=== PATIENT | female | born 1955 | race Caucasian/White ===

== ENCOUNTER 2018-07-10 14:42 | Outpatient (REF) | payer MEDICARE, MEDICAID, SELFPAY ==
--- NOTE | 2018-07-10 11:30 | PAPFT_PTH ---
PATIENT: Charity Tracey LOC: [facility] U#:[id number] AGE/SX: 63/F ROOM: RE07/10/[address]: Denae Najera : 1955 BED: DIS: 07/10/2018 SPEC #: [id number] RECD: 07/11/18 13:14 STATUS: ROBIN PANCHAL #: [id number] BELL: 07/10/18 11:[address]: Denae Rivera [facility]PT[facility] Cytology RECD BY: Barbie Arroyo ENTERED: 07/11/18 13:14 SP TYPE: PAPFT SU DR: Melisa Calixto Tissues: 1 - CX/ENDOCX FOR PAP SMEARS Procedures: PAP THIN PREP/[facility] Screening HPV DNA PROBE Comments: [id number]
[2018-07-10 22:28] LABS: ALT 52 U/L (12-78); AST 28 U/L (15-37); Albumin 4.5 g/dL (3.4-5.0); Alkaline Phosphatase 94 U/L (46-116); Anion Gap 9.7 mmol/L (3-11); BUN 21 mg/dL (7-18); Bilirubin, Total 0.4 mg/dL (0.2-1.0); CO2 30.3 mmol/L (21.0-32.0); CREATININE 1.02 mg/dL (0.55-1.02); Calcium 9.5 mg/dL (8.5-10.1); Chloride 105 mmol/L (98-107); Cholesterol 142 mg/dL (50-200); Estimated GFR 54.91 (mL/min/1.73m2); Glucose 92 mg/dL (70-100); HDL Cholesterol 64 mg/dL (40-60); LDL CHOLESTEROL 64 mg/dL (<100); Potassium 4.2 mmol/L (3.5-5.1); Sodium 145 mmol/L (136-145); TSH 1.03 uIU/mL (0.358-3.74); Total Protein 8.3 g/dL (6.4-8.2); Triglyceride 47 mg/dL (30-150)
== END 2018-07-10 15:02 ==
LOC: NCHCN 14:42
PROVIDERS: PCP Nurse Practitioner Family; Visit Provider Nurse Practitioner Family
DX: E10.9 Type 1 diabetes mellitus without complications (principal); Z12.4 Encounter for screening for malignant neoplasm of cervix; Z11.51 Encounter for screening for human papillomavirus (HPV); I10 Essential (primary) hypertension
CPT/HCPCS: 80053; 80061; 83721; 88142; 84443; 87624

== ENCOUNTER 2019-01-10 11:22 | Outpatient (REF) | payer MEDICARE, MEDICAID, SELFPAY ==
[2019-01-10 21:27] LABS: Abs Immature Grans 0.01 k/cumm (0.0-0.09); Absolute Basophil Count 0.02 k/cumm (0.0-0.2); Absolute Eosinophil Count 0.17 k/cumm (0.0-0.7); Absolute Lymphocyte Count 1.35 k/cumm (1.2-3.4); Absolute Monocyte Count 0.56 k/cumm (0.11-0.7); Absolute Neutrophil Count 6.43 k/cumm (1.2-6.7); Basophils % 0.2; HCT 35.1 % (36.0-46.0); HGB 11.7 g/dL (12.0-15.5); Immature Grans % 0.1; Lymphocytes % 15.8; Mean Corp. HGB Concentration 33.3 g/dL (32.0-36.0); Mean Corpuscular Hemoglobin 31.2 pg (27.0-33.0); Mean Corpuscular Volume 93.6 fL (80-95); Mean Platelet Volume 10.9 fL (8.0-11.0); Monocytes % 6.6; Neutrophils % 75.3; Platelet Count 255 x1000/uL (130-400); RBC 3.75 m/cumm (4.00-5.20); RBC Distribution Width 13.4 % (11.7-14.6); White Blood Cell Count 8.54 k/cumm (4.4-10.8)
[2019-01-10 22:37] LABS: ALT 50 U/L (12-78); AST 27 U/L (15-37); Albumin 4.5 g/dL (3.4-5.0); Alkaline Phosphatase 97 U/L (46-116); Anion Gap 12.2 mmol/L (3-11); BUN 19 mg/dL (7-18); Bilirubin, Total 0.3 mg/dL (0.2-1.0); CO2 25.8 mmol/L (21.0-32.0); CREATININE 1.05 mg/dL (0.55-1.02); Chloride 103 mmol/L (98-107); Glucose 159 mg/dL (70-100); Potassium 4.4 mmol/L (3.5-5.1); Sodium 141 mmol/L (136-145); TSH (W/Ref FT4) 1.17 uIU/mL (0.36-3.74); Total Protein 7.9 g/dL (6.4-8.2)
[2019-01-10 23:00] LABS: COMMENT (LAB VIEW ONLY) 73.65 mg/dL; Microalb ug/mg Crea 88.5 ug/mg Cr
[2019-01-14 11:32] LABS: Lyme Ab w Rflx to Lyme Confirm Negative
[2019-01-14 20:44] LABS: Anaplasma phagocytophilum Negative (Negative); B. miyamotoi PCR Negative (Negative); Babesia divergens/MO-1 Negative (Negative); Babesia duncani Negative (Negative); Babesia microti Negative (Negative); Ehrlichia chaffeensis Negative (Negative); Ehrlichia ewingii/canis Negative (Negative); Ehrlichia muris eauclairensis Negative (Negative)
== END 2019-01-10 11:42 ==
LOC: NCHCN 11:22
PROVIDERS: PCP Nurse Practitioner Family; Visit Provider Nurse Practitioner Family
DX: E10.9 Type 1 diabetes mellitus without complications (principal); R53.81 Other malaise; F41.8 Other specified anxiety disorders; G89.4 Chronic pain syndrome
CPT/HCPCS: 80053; 87798; 82043; 82570; 84443; 85025; 86618

== ENCOUNTER 2020-02-20 13:47 | Outpatient (REF) | payer MEDICARE, MEDICAID, SELFPAY ==
[2020-02-20 21:04] LABS: Anion Gap 7.4 mmol/L (3-11); BUN 30 mg/dL (7-18); CO2 28.6 mmol/L (21.0-32.0); CREATININE 1.17 mg/dL (0.55-1.02); Calcium 8.6 mg/dL (8.5-10.1); Chloride 107 mmol/L (98-107); Estimated GFR 46.57 (mL/min/1.73m2); Glucose 75 mg/dL (74-106); Potassium 4.7 mmol/L (3.5-5.1); Sodium 143 mmol/L (136-145)
[2020-02-20 21:08] LABS: COMMENT (LAB VIEW ONLY) 63.86 mg/dL; Microalb ug/mg Crea 30.2 ug/mg Cr
== END 2020-02-20 14:07 ==
LOC: NCHCN 13:47
PROVIDERS: PCP Nurse Practitioner Family; Visit Provider Nurse Practitioner Family
DX: E10.9 Type 1 diabetes mellitus without complications (principal); R80.9 Proteinuria, unspecified; G89.4 Chronic pain syndrome
CPT/HCPCS: 80048; 82043; 82570

== ENCOUNTER 2020-12-28 16:35 | Outpatient (REF) | payer MEDICARE, MEDICAID, SELFPAY ==
[2020-12-30 13:50] LABS: COVID-19 RT-PCR UVMMC Result Negative (Negative)
== END 2020-12-28 16:36 | disposition home or self-care (01) ==
LOC: NCHCN 16:35
PROVIDERS: PCP Nurse Practitioner Family; Visit Provider Family Medicine
DX: Z20.822 Contact with and (suspected) exposure to COVID-19 (principal); R06.02 Shortness of breath
CPT/HCPCS: U0003; U0005

== ENCOUNTER 2021-03-03 12:07 | Outpatient (REF) | payer MEDICARE, MEDICAID, SELFPAY | END 2021-03-03 12:08 | disposition home or self-care (01) | LOC: NCHCN 12:07 | PROVIDERS: PCP Nurse Practitioner Family; Visit Provider Registered Nurse | DX: L72.9 Follicular cyst of the skin and subcutaneous tissue, unspecified (principal) | CPT/HCPCS: 87070; 87205 ==

== ENCOUNTER 2021-03-08 17:20 | Outpatient (REF) | payer MEDICARE, MEDICAID, SELFPAY ==
[2021-03-08 21:19] LABS: HCT 30.4 % (36.0-46.0); HGB 9.7 g/dL (11.2-15.7); MCH 30.6 pg (27.0-33.0); MCHC 31.9 % (32.0-36.0); MCV 95.9 fL (80-95); MPV 10.7 fL (8.0-11.0); Platelet Count 358 10^3/uL (130-400); RBC 3.17 10^6/uL (3.93-5.22); RDW 13.2 % (11.7-14.6); RDW-SD 47.1 fL; WBC 9.79 10^3/uL (4.4-10.8)
[2021-03-08 21:36] LABS: Anion Gap 8.4 mmol/L (3-11); BUN 18 mg/dL (7-18); CO2 28.6 mmol/L (21.0-32.0); Calcium 8.8 mg/dL (8.5-10.1); Chloride 105 mmol/L (98-107); Estimated GFR 55.64 (mL/min/1.73m2); Glucose 132 mg/dL (74-106); Sodium 142 mmol/L (136-145)
[2021-03-08 21:47] LABS: Microalb ug/mg Crea 83.5 ug/mg Cr
[2021-03-09 17:08] LABS: Iron 38 ug/dL (50-170); Total Iron Binding Capacity 300 ug/dL (250-450); Transferrin Sat 13 % (15-50)
[2021-03-09 17:35] LABS: Ferritin 53 ng/mL (8-252); Vitamin B12 476 pg/mL (193-986)
== END 2021-03-08 17:21 | disposition home or self-care (01) ==
LOC: NCHCN 17:20
PROVIDERS: PCP Nurse Practitioner Family; Visit Provider Nurse Practitioner Family
DX: E10.9 Type 1 diabetes mellitus without complications (principal); D64.9 Anemia, unspecified; N18.9 Chronic kidney disease, unspecified
CPT/HCPCS: 80048; 85027; 82043; 82570; 82607; 82728; 83540; 83550

== ENCOUNTER 2021-03-18 11:28 | Outpatient (REF) | payer MEDICARE, MEDICAID, SELFPAY ==
[2021-03-17 22:17] LABS: Folate 17.8 ng/mL (8.6-20.0)
[2021-03-22 13:21] LABS: IgA 177 mg/dL (85-499); Interpretation (See Note); Tissue Transglutaminase IgA <1.2 U/mL (<4.0)
== END 2021-03-18 11:29 | disposition home or self-care (01) ==
LOC: NCHCN 11:28
PROVIDERS: PCP Nurse Practitioner Family; Visit Provider Nurse Practitioner Family
DX: D64.9 Anemia, unspecified (principal)
CPT/HCPCS: 82784; 83516; 82746

== ENCOUNTER 2021-05-07 23:57 | Outpatient (REF) | payer MEDICARE, MEDICAID, SELFPAY ==
[2021-05-07 20:56] LABS: BUN 15 mg/dL (7-18); CREATININE 0.9 mg/dL (0.55-1.02)
== END 2021-05-07 23:58 | disposition home or self-care (01) ==
LOC: NCHCN 23:57
PROVIDERS: PCP Nurse Practitioner Family; Visit Provider Nurse Practitioner Family
DX: K86.89 Other specified diseases of pancreas (principal)
CPT/HCPCS: 84520; 82565

== ENCOUNTER 2021-06-03 19:41 | Outpatient (REF) | payer OTHER, MEDICAID, SELFPAY ==
[2021-06-03 21:32] LABS: HGB 10.3 g/dL (11.2-15.7); MCH 30.9 pg (27.0-33.0); MCHC 32.2 % (32.0-36.0); MCV 96.1 fL (80-95); MPV 10.9 fL (8.0-11.0); Platelet Count 212 10^3/uL (130-400); RBC 3.33 10^6/uL (3.93-5.22); RDW-SD 53.3 fL; WBC 8.01 10^3/uL (4.4-10.8)
[2021-06-03 21:56] LABS: Iron 91 ug/dL (50-170); Total Iron Binding Capacity 329 ug/dL (250-450); Transferrin Sat 28 % (15-50)
[2021-06-03 22:10] LABS: Ferritin 42 ng/mL (8-252)
[2021-06-03 22:34] LABS: Hemoglobin A1C 8.1 % (<5.7)
== END 2021-06-03 19:42 | disposition home or self-care (01) ==
LOC: NCHCN 19:41
PROVIDERS: PCP Nurse Practitioner Family; Visit Provider Nurse Practitioner Family
DX: D64.9 Anemia, unspecified (principal); E10.9 Type 1 diabetes mellitus without complications
CPT/HCPCS: 85027; 82728; 83036; 83540; 83550

== ENCOUNTER 2021-07-21 15:32 | Outpatient (REF) | payer OTHER, MEDICAID, SELFPAY ==
[2021-07-21 16:57] LABS: BUN 30 mg/dL (7-18); CREATININE 1.1 mg/dL (0.55-1.02); Estimated GFR 49.85 (mL/min/1.73m2)
== END 2021-07-21 15:33 | disposition home or self-care (01) ==
LOC: NCHCN 15:32
PROVIDERS: PCP Nurse Practitioner Family; Visit Provider Nurse Practitioner Family
DX: R63.4 Abnormal weight loss (principal); K86.9 Disease of pancreas, unspecified
CPT/HCPCS: 84520; 82565

== ENCOUNTER 2021-09-27 13:19 | Outpatient (REF) | payer OTHER, MEDICAID, SELFPAY ==
[2021-09-27 14:30] LABS: HCT 32.4 % (36.0-46.0); HGB 10.5 g/dL (11.2-15.7); MCH 32.3 pg (27.0-33.0); MCHC 32.4 % (32.0-36.0); MCV 100 fL (80-95); MPV 11.2 fL (8.0-11.0); Platelet Count 216 10^3/uL (130-400); RBC 3.25 10^6/uL (3.93-5.22); RDW 13.7 % (11.7-14.6); WBC 8.66 10^3/uL (4.4-10.8)
[2021-09-27 15:27] LABS: Hemoglobin A1C 7.9 % (<5.7)
[2021-09-27 15:42] LABS: Anion Gap 11.4 mmol/L (3-11); BUN 27 mg/dL (7-18); CO2 22.6 mmol/L (21.0-32.0); CREATININE 1.1 mg/dL (0.55-1.02); Calcium 8.4 mg/dL (8.5-10.1); Chloride 108 mmol/L (98-107); Estimated GFR 49.85 (mL/min/1.73m2); Glucose 172 mg/dL (74-106); Potassium 4.2 mmol/L (3.5-5.1); Sodium 142 mmol/L (136-145)
== END 2021-09-27 13:20 | disposition home or self-care (01) ==
LOC: NCHCN 13:19
PROVIDERS: PCP Nurse Practitioner Family; Visit Provider Nurse Practitioner Family
DX: E10.9 Type 1 diabetes mellitus without complications (principal); N18.9 Chronic kidney disease, unspecified; I10 Essential (primary) hypertension; D64.9 Anemia, unspecified
CPT/HCPCS: 80048; 85027; 83036

== ENCOUNTER 2022-01-27 12:26 | Outpatient (REF) | payer OTHER, MEDICAID, SELFPAY ==
[2022-01-27 15:53] LABS: Vitamin D 25 Total 26.4 ng/mL (30-100)
== END 2022-01-27 12:27 | disposition home or self-care (01) ==
LOC: NCHCN 12:26
PROVIDERS: PCP Nurse Practitioner Family; Visit Provider Nurse Practitioner Family
DX: M81.0 Age-related osteoporosis without current pathological fracture (principal)
CPT/HCPCS: 82306

== ENCOUNTER 2022-02-07 18:11 | Outpatient (REF) | payer OTHER, MEDICAID, SELFPAY ==
[2022-02-08 17:51] LABS: Albumin ug/mg Crea 335 (<30); Albumin, Ur 27.8 mg/dL (See Note)
== END 2022-02-07 18:12 | disposition home or self-care (01) ==
LOC: NCHCN 18:11
PROVIDERS: PCP Nurse Practitioner Family; Visit Provider Nurse Practitioner Family
DX: E10.9 Type 1 diabetes mellitus without complications (principal)
CPT/HCPCS: 82043; 82570

== ENCOUNTER 2022-05-12 15:23 | Outpatient (REF) | payer OTHER, MEDICAID, SELFPAY ==
[2022-05-12 14:23] LABS: HCT 35.3 % (36.0-46.0); HGB 11.5 g/dL (11.2-15.7); MCH 31.9 pg (27.0-33.0); MCHC 32.6 % (32.0-36.0); MCV 98 fL (80-95); MPV 11.4 fL (8.0-11.0); Platelet Count 226 10^3/uL (130-400); RBC 3.61 10^6/uL (3.93-5.22); RDW 13.4 % (11.7-14.6); RDW-SD 48.5 fL; WBC 9.99 10^3/uL (4.4-10.8)
[2022-05-12 14:33] LABS: Anion Gap 7.7 mmol/L (3-11); BUN 47 mg/dL (7-18); CO2 24.3 mmol/L (21.0-32.0); CREATININE 1.5 mg/dL (0.55-1.02); Calcium 8.3 mg/dL (8.5-10.1); Chloride 108 mmol/L (98-107); Glucose 124 mg/dL (74-106); Potassium 4.7 mmol/L (3.5-5.1); Sodium 140 mmol/L (136-145)
[2022-05-12 14:57] LABS: Hemoglobin A1C 7.9 % (<5.7)
== END 2022-05-12 15:24 | disposition home or self-care (01) ==
LOC: NCHCN 15:23
PROVIDERS: PCP Nurse Practitioner Family; Visit Provider Nurse Practitioner Family
DX: E10.9 Type 1 diabetes mellitus without complications (principal); I10 Essential (primary) hypertension; R53.81 Other malaise
CPT/HCPCS: 80048; 85027; 83036

== ENCOUNTER 2022-08-22 15:10 | Outpatient (REF) | payer MEDICARE, MEDICAID, SELFPAY ==
[2022-08-22 16:33] LABS: Hemoglobin A1C 8.7 % (<5.7)
[2022-08-22 16:40] LABS: Anion Gap 9.4 mmol/L (3-11); BUN 31 mg/dL (7-18); CO2 22.6 mmol/L (21.0-32.0); CREATININE 1.2 mg/dL (0.55-1.02); Calcium 9.4 mg/dL (8.5-10.1); Chloride 109 mmol/L (98-107); Estimated GFR 49.92 (mL/min/1.73m2); Glucose 118 mg/dL (74-106); Potassium 4.2 mmol/L (3.5-5.1); Sodium 141 mmol/L (136-145)
== END 2022-08-22 15:11 | disposition home or self-care (01) ==
LOC: NCHCN 15:10
PROVIDERS: PCP Nurse Practitioner Family; Visit Provider Nurse Practitioner Family
DX: E10.9 Type 1 diabetes mellitus without complications (principal); F33.8 Other recurrent depressive disorders; N18.9 Chronic kidney disease, unspecified; F17.210 Nicotine dependence, cigarettes, uncomplicated
CPT/HCPCS: 80048; 83036

== ENCOUNTER 2022-11-28 16:00 | Outpatient (REF) | payer MEDICARE, MEDICAID, SELFPAY ==
[2022-11-28 22:49] LABS: COMMENT (LAB VIEW ONLY) 48.07 mg/dL
[2022-11-28 23:01] LABS: Microalb ug/mg Crea 126.3 ug/mg Cr
== END 2022-11-28 16:01 | disposition home or self-care (01) ==
LOC: NCHCN 16:00
PROVIDERS: PCP Nurse Practitioner Family; Visit Provider Nurse Practitioner Family
DX: E10.9 Type 1 diabetes mellitus without complications (principal)
CPT/HCPCS: 82043; 82570

== ENCOUNTER 2023-09-26 12:07 | Outpatient (REF) | payer MEDICARE, MEDICAID, SELFPAY ==
[2023-09-26 14:46] LABS: Abs Immature Grans 0.02 10^3/uL (0.0-0.06); Absolute Basophil Count 0.05 10^3/uL (0.0-0.2); Absolute Eosinophil Count 0.17 10^3/uL (0.0-0.7); Absolute Lymphocyte Count 1.72 10^3/uL (1.2-3.4); Absolute Monocyte Count 0.58 10^3/uL (0.1-0.8); Absolute Neutrophil Count 5.12 10^3/uL (1.2-6.7); Basophils % 0.7; Eosinophils % 2.2; HGB 9.8 g/dL (11.2-15.7); Immature Grans % 0.3; Lymphocytes % 22.5; MCH 31.6 pg (27.0-33.0); MCHC 32.7 % (32.0-36.0); MCV 97 fL (80-95); MPV 11.2 fL (8.0-11.0); Monocytes % 7.6; Neutrophils % 66.7; Platelet Count 205 10^3/uL (130-400); RDW 13.6 % (11.7-14.6); RDW-SD 48.9 fL; WBC 7.66 10^3/uL (4.4-10.8)
[2023-09-26 15:07] LABS: ALT 75 U/L (14-59); AST 36 U/L (15-37); Albumin 4.3 g/dL (3.4-5.0); Alkaline Phosphatase 124 U/L (46-116); Anion Gap 8.6 mmol/L (3-11); BUN 36 mg/dL (7-18); Bilirubin, Total 0.2 mg/dL (0.2-1.0); CO2 25.4 mmol/L (21.0-32.0); CREATININE 1.6 mg/dL (0.55-1.02); Calcium 8.7 mg/dL (8.5-10.1); Chloride 107 mmol/L (98-107); Estimated GFR 35.13 (mL/min/1.73m2); Glucose 87 mg/dL (74-106); Potassium 5.4 mmol/L (3.5-5.1); Sodium 141 mmol/L (136-145); TSH 1.51 uIU/Ml (0.36-3.74); Total Protein 7.5 g/dL (6.4-8.2)
[2023-09-26 15:40] LABS: Hemoglobin A1C 8.2 % (<5.7)
== END 2023-09-26 12:08 | disposition home or self-care (01) ==
LOC: NCHCN 12:07
PROVIDERS: PCP Nurse Practitioner Family; Visit Provider Nurse Practitioner Family
DX: E10.65 Type 1 diabetes mellitus with hyperglycemia (principal); I10 Essential (primary) hypertension
CPT/HCPCS: 80053; 83036; 84443; 85025

== ENCOUNTER 2023-10-09 16:08 | Outpatient (REF) | payer MEDICARE, MEDICAID, SELFPAY ==
[2023-10-09 21:54] LABS: Ferritin 56 ng/mL (8-252); Vitamin B12 556 pg/mL (193-986)
[2023-10-09 21:55] LABS: Folate > 20.0 ng/mL (8.6-20.0)
[2023-10-09 22:36] LABS: Iron 55 ug/dL (50-170); Total Iron Binding Capacity 330 ug/dL (250-450); Transferrin Sat 17 % (15-50)
== END 2023-10-09 16:09 | disposition home or self-care (01) ==
LOC: NCHCN 16:08
PROVIDERS: PCP Nurse Practitioner Family; Visit Provider Nurse Practitioner Family
DX: D64.9 Anemia, unspecified (principal); Z86.39 Personal history of other endocrine, nutritional and metabolic disease
CPT/HCPCS: 82607; 82728; 82746; 83540; 83550

== ENCOUNTER 2024-02-14 17:18 | Outpatient (REF) | payer MEDICARE, MEDICAID, SELFPAY ==
[2024-02-14 14:24] LABS: Abs Immature Grans 0.06 10^3/uL (0.0-0.06); Absolute Eosinophil Count 0.14 10^3/uL (0.0-0.7); Absolute Monocyte Count 0.83 10^3/uL (0.1-0.8); Basophils % 0.4 %; HCT 29.5 % (36.0-46.0); HGB 9.2 g/dL (11.2-15.7); Immature Grans % 0.4 %; Lymphocytes % 8.1 %; MCH 30.6 pg (27.0-33.0); MCHC 31.2 % (32.0-36.0); MCV 98 fL (80-95); MPV 10.6 fL (8.0-11.0); Monocytes % 5.8 %; Neutrophils % 84.3 %; Platelet Count 345 10^3/uL (130-400); RBC 3.01 10^6/uL (3.93-5.22); RDW 14.2 % (11.7-14.6); RDW-SD 50.6 fL; WBC 14.24 10^3/uL (4.4-10.8)
[2024-02-14 14:25] LABS: Absolute Basophil Count 0.06 10^3/uL (0.0-0.2); Absolute Lymphocyte Count 1.15 10^3/uL (1.2-3.4)
[2024-02-14 14:57] LABS: Anion Gap 11.3 mmol/L (3-11); BUN 52 mg/dL (7-18); CO2 21.7 mmol/L (21.0-32.0); Calcium 8.1 mg/dL (8.5-10.1); Chloride 104 mmol/L (98-107); Estimated GFR 26.71 (mL/min/1.73m2); Ferritin 106 ng/mL (8-252); Glucose 269 mg/dL (74-106); Potassium 4.9 mmol/L (3.5-5.1); Sodium 137 mmol/L (136-145)
[2024-02-14 15:03] LABS: Iron 32 ug/dL (50-170); Total Iron Binding Capacity 329 ug/dL (250-450); Transferrin Sat 10 % (15-50)
== END 2024-02-14 17:19 | disposition home or self-care (01) ==
LOC: NCHCN 17:18
PROVIDERS: PCP Nurse Practitioner Family; Visit Provider Nurse Practitioner Family
DX: D64.9 Anemia, unspecified (principal)
CPT/HCPCS: 80048; 82728; 83036; 83540; 83550; 85025

== ENCOUNTER 2024-02-20 13:40 | Outpatient (REF) | payer MEDICARE, MEDICAID, SELFPAY ==
[2024-02-20 15:00] LABS: ALT 57 U/L (14-59); AST 27 U/L (15-37); Albumin 2.9 g/dL (3.4-5.0); Alkaline Phosphatase 249 U/L (46-116); Anion Gap 8.5 mmol/L (3-11); BUN 51 mg/dL (7-18); Bilirubin, Total 0.19 mg/dL (0.2-1.0); CO2 20.5 mmol/L (21.0-32.0); Calcium 8.7 mg/dL (8.5-10.1); Chloride 104 mmol/L (98-107); Estimated GFR 26.71 (mL/min/1.73m2); Glucose 144 mg/dL (74-106); Potassium 4.6 mmol/L (3.5-5.1); Sodium 133 mmol/L (136-145); Total Protein 7.7 g/dL (6.4-8.2)
[2024-02-20 15:19] LABS: NT-proBNP 980 pg/mL (<300)
== END 2024-02-20 13:41 | disposition home or self-care (01) ==
LOC: NCHCN 13:40
PROVIDERS: PCP Nurse Practitioner Family; Visit Provider Nurse Practitioner Family
DX: N18.31 Chronic kidney disease, stage 3a (principal)
CPT/HCPCS: 80053; 83880

== ENCOUNTER 2024-03-26 23:59 | Outpatient (REF) | payer MEDICARE, MEDICAID, SELFPAY ==
[2024-03-26 21:48] LABS: HCT 26.6 % (36.0-46.0); MCH 29.6 pg (27.0-33.0); MCHC 30.1 % (32.0-36.0); MCV 99 fL (80-95); MPV 10.7 fL (8.0-11.0); Platelet Count 415 10^3/uL (130-400); RDW 14.4 % (11.7-14.6); RDW-SD 52.2 fL; WBC 13.08 10^3/uL (4.4-10.8)
[2024-03-26 22:00] LABS: Prothrombin Time 9.9 sec (9.1-11.1)
[2024-03-26 22:17] LABS: Iron 28 ug/dL (50-170); Total Iron Binding Capacity 343 ug/dL (250-450); Transferrin Sat 8 % (15-50)
[2024-03-26 22:32] LABS: COMMENT (LAB VIEW ONLY) < 13.00 mg/dL
[2024-03-26 22:45] LABS: Anion Gap 12.2 mmol/L (3-11); BUN 50 mg/dL (7-18); CO2 19.8 mmol/L (21.0-32.0); CREATININE 1.7 mg/dL (0.55-1.02); Calcium 8.6 mg/dL (8.5-10.1); Calculated LDL 62 mg/dL (<100); Chloride 108 mmol/L (98-107); Cholesterol 122 mg/dL (<200); Estimated GFR 32.46 (mL/min/1.73m2); Ferritin 69 ng/mL (8-252); Glucose 200 mg/dL (74-106); HDL Cholesterol 43 mg/dL (40-60); Potassium 5.3 mmol/L (3.5-5.1); Sodium 140 mmol/L (136-145); Triglyceride 87 mg/dL (<150); Vitamin D 25 Total 25.3 ng/mL (30-100)
[2024-03-26 23:08] LABS: NT-proBNP 549 pg/mL (<300); PHOSPHORUS 4.1 mg/dL (2.6-4.7)
[2024-03-27 17:56] LABS: Parathyroid Hormone,Intact 198 pg/mL (19-88)
[2024-03-28 11:30] LABS: IgA 226 mg/dL (85-499); Interpretation (See Note); Tissue Transglutaminase IgA <4.0 CU (<20.0)
== END 2024-03-27 | disposition home or self-care (01) ==
LOC: NCHCN 23:59
PROVIDERS: PCP Nurse Practitioner Family; Visit Provider Nurse Practitioner Family
DX: E10.65 Type 1 diabetes mellitus with hyperglycemia (principal); R60.9 Edema, unspecified
CPT/HCPCS: 80048; 80061; 82306; 82784; 83516; 85027; 82043; 82570; 82728; 83540; 83550; 83880; 83970; 84100; 85610

== ENCOUNTER 2024-06-10 21:57 | Outpatient (REF) | payer MEDICARE, MEDICAID, SELFPAY ==
[2024-06-10 22:06] LABS: HCT 29.8 % (36.0-46.0); HGB 9.3 g/dL (11.2-15.7); MCH 29.2 pg (27.0-33.0); MCHC 31.2 % (32.0-36.0); MCV 93 fL (80-95); MPV 11.1 fL (8.0-11.0); Platelet Count 327 10^3/uL (130-400); RBC 3.19 10^6/uL (3.93-5.22); RDW 14.3 % (11.7-14.6); RDW-SD 49.3 fL; WBC 10.41 10^3/uL (4.4-10.8)
[2024-06-10 22:15] LABS: Iron 58 ug/dL (50-170); Total Iron Binding Capacity 392 ug/dL (250-450); Transferrin Sat 15 % (15-50)
[2024-06-10 22:40] LABS: Anion Gap 10.3 mmol/L (3-11); BUN 39 mg/dL (7-18); CO2 24.7 mmol/L (21.0-32.0); CREATININE 1.9 mg/dL (0.55-1.02); Chloride 105 mmol/L (98-107); Estimated GFR 28.41 (mL/min/1.73m2); Ferritin 32 ng/mL (8-252); Glucose 113 mg/dL (74-106); Potassium 4.6 mmol/L (3.5-5.1); Sodium 140 mmol/L (136-145); Vitamin D 25 Total 20.4 ng/mL (30-100)
[2024-06-10 22:45] LABS: GGT 128 U/L (5-55)
== END 2024-06-10 21:58 | disposition home or self-care (01) ==
LOC: NCHCN 21:57
PROVIDERS: PCP Nurse Practitioner Family; Visit Provider Nurse Practitioner Family
DX: N18.9 Chronic kidney disease, unspecified (principal); R74.8 Abnormal levels of other serum enzymes; E55.9 Vitamin D deficiency, unspecified
CPT/HCPCS: 80048; 82306; 85027; 82728; 82977; 83540; 83550

== ENCOUNTER 2024-06-24 16:11 | Outpatient (REF) | payer MEDICARE, MEDICAID, SELFPAY ==
[2024-06-24 21:38] LABS: Anion Gap 9.1 mmol/L (3-11); BUN 50 mg/dL (7-18); CO2 22.9 mmol/L (21.0-32.0); CREATININE 1.9 mg/dL (0.55-1.02); Calcium 9.2 mg/dL (8.5-10.1); Chloride 104 mmol/L (98-107); Estimated GFR 28.41 (mL/min/1.73m2); Glucose 195 mg/dL (74-106); Potassium 4.5 mmol/L (3.5-5.1); Sodium 136 mmol/L (136-145)
[2024-06-24 22:09] LABS: Microalb ug/mg Crea 612.7 ug/mg Cr
== END 2024-06-24 16:12 | disposition home or self-care (01) ==
LOC: NCHCN 16:11
PROVIDERS: PCP Nurse Practitioner Family; Visit Provider Nurse Practitioner Family
DX: N18.9 Chronic kidney disease, unspecified (principal); E55.9 Vitamin D deficiency, unspecified; R80.9 Proteinuria, unspecified
CPT/HCPCS: 80048; 82043; 82570; 83735

== ENCOUNTER 2025-01-17 16:12 | Outpatient (REF) | payer MEDICARE, MEDICAID, SELFPAY ==
[2025-01-17 16:08] LABS: Iron 74 ug/dL (50-170); Total Iron Binding Capacity 367 ug/dL (250-450); Transferrin Sat 20 % (15-50)
[2025-01-17 16:28] LABS: Anion Gap 13.3 mmol/L (3-11); BUN 35 mg/dL (7-18); CO2 20.7 mmol/L (21.0-32.0); Calcium 8.9 mg/dL (8.5-10.1); Chloride 106 mmol/L (98-107); Estimated GFR 30.31 (mL/min/1.73m2); Ferritin 41 ng/mL (8-252); Glucose 226 mg/dL (74-106); Potassium 5.0 mmol/L (3.5-5.1); Sodium 140 mmol/L (136-145); Vitamin D 25 Total 11 ng/mL (30-100)
[2025-01-21 09:15] LABS: Hemoglobin A1C 9.1 % (<5.7)
== END 2025-01-17 16:13 | disposition home or self-care (01) ==
LOC: NCHCN 16:12
PROVIDERS: PCP Nurse Practitioner Family; Visit Provider Nurse Practitioner Family
DX: D64.9 Anemia, unspecified (principal); E55.9 Vitamin D deficiency, unspecified; E10.65 Type 1 diabetes mellitus with hyperglycemia; I10 Essential (primary) hypertension
CPT/HCPCS: 80048; 82306; 82728; 83036; 83540; 83550

== ENCOUNTER 2025-01-28 15:21 | Outpatient (REF) | payer MEDICARE, MEDICAID, SELFPAY ==
[2025-01-28 17:26] LABS: COMMENT (LAB VIEW ONLY) 76.94 mg/dL
[2025-01-28 17:37] LABS: Microalb ug/mg Crea 623.5 ug/mg Cr
== END 2025-01-28 15:22 | disposition home or self-care (01) ==
LOC: NCHCN 15:21
PROVIDERS: PCP Nurse Practitioner Family; Visit Provider Nurse Practitioner Family
DX: N18.4 Chronic kidney disease, stage 4 (severe) (principal)
CPT/HCPCS: 82043; 82570